=== PATIENT | male | born 1965 | race Caucasian/White ===

== ENCOUNTER 2016-11-24 18:22 | Emergency (ER) | payer OTHER, MEDICARE ==
--- NOTE | 2016-11-24 20:30 | EDDOCDS ---
Nurse's Notes [facility] Name: Joey Rogers Age: 51 yrs Sex: Male : 1965 Arrival Date: 11/24/2016 Time: 18:22 Bed TR7 Private MD: Jesus Dodge H. 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 has seen PMD and srm was given flonase. not helping. nausea dizzy. This patient has no additional risk factors. Adult Sepsis Screening: The patient does not have new or worsening altered mentation. Patient's respiratory rate is less than 22. Systolic blood pressure is greater than 100. Patient has a qSOFA score of 0- Negative Sepsis Screen. Suicide/Homicide risk assessment- the patient denies having any suicidal and/or homicidal ideations and does not present with any other emotional, behavioral or mental health complaints. Status: Patient is not a service girl or dependent. Transition of care: patient was not received from another setting of care. 18:37 Acuity: JORGE Level 4 srm 18:37 Method Of Arrival: Walkin/Carried/Asstd srm Triage Assessment: 18:41 Headache History: This patient does not have a history of previous headaches. General: srm Appears in no apparent distress, Behavior is appropriate for age, cooperative. Pain: Pain currently is 6 out of 10 on a pain scale. Pain began 1 week Also complains of nausea. Neurological: Level of Consciousness is awake, alert, Oriented to person, place, time. 18:42 Pt Declines HIV testing. srm Historical: - Allergies: Morphine; - Home Meds: 1. Flonase 50 mcg/actuation Nasal spsn 1 spray 2 times per day 2. Toprol XL 25 mg Oral Tb24 once daily 3. atorvastatin 10 mg oral tab 1 tab once daily - PMHx: Hypertension; Hypercholesterolemia; av heart block second degree; - PSHx: Pacemaker Insertion; knee surgery; Vasectomy; Hernia repair; - Social history: Smoking status: Patient states former smoker of tobacco. No barriers to communication noted, The patient speaks fluent Czech, Speaks appropriately for age. - Family history: Not pertinent. - : The pt / caregiver states he / she is not on anticoagulants. Home medication list is obtained from the patient. - Exposure Risk Screening:: None identified. Screenin:26 Screening information is obtained from the patient. Fall risk: No risks identified. [facility] Assistance ADL's: requires no assistance with activities of daily living. Abuse/DV Screen: The patient / caregiver reports he/she is: not in a situation that causes fear, pain or injury. Nutritional screening: No deficits noted. Advance Directives: There is no active DNR order. home support is adequate. Assessment: 20:26 General: Appears in no apparent distress, comfortable, Behavior is appropriate for age, h cooperative. Pain: Location: head Pain currently is 6 out of 10 on a pain scale. Pain: Also complains of no other associated symptoms. Neurological: Level of Consciousness is awake, alert, Oriented to person, place, time. Respiratory: Airway is patent Respiratory effort is even, unlabored, Respiratory pattern is regular, symmetrical. Derm: Skin is pink, warm & dry. Vital Signs: 18:23 BP 120 / 60; Pulse 76; Resp 18; Temp 97.0(O); Pulse Ox 99% on R/A; Weight 79.38 kg (R); ct3 Height 5 ft. 6 in. (167.64 cm) (R); Pain 6/10; 20:20 BP 145 / 89; Pulse 61; Resp 18; Temp 98.3; Pulse Ox 96% on R/A; Pain 5/10; ar3 18:23 Body Mass Index 28.25 (79.38 kg, 167.64 cm) ct3 Vitals: 18:23 Log In Time: November 24, 2016 at 18:20. ct3 ED Course: 18:23 Patient visited by Laura Dobbs PCA. ct3 18:23 Jesus Dodge is Private Physician. ct3 18:23 Patient moved to Waiting ct3 18:24 Patient moved to Pre RCE ct3 18:38 Triage Initiated srm 19:46 Mamie Smith,BARBIE is Primary Nurse. ar3 19:46 Patient moved to Triage 3 ar3 19:56 Javy Carson PA is PHCP. btw 19:56 Patricio Angela DO is Attending Physician. btw 19:57 Patient visited by Javy Carson PA. btw 20:12 Jesus Dodge is Referral Physician. btw 20:20 Patient visited by Sanjana Serrano PCA. ar3 20:22 Patient moved to [facility] 20:26 The patient / caregiver is instructed regarding the plan of care and ED course. [facility] 20:26 No IV's were initiated during this patient's visit. No procedures done that require [facility] assistance. 20:29 [facility] Payment Agreement was scanned into [email or web address] and attached to record. [facility] Order Results: There are currently no results for this order. Outcome: 20:12 Discharge ordered by Provider. bt 20:26 Discharge Assessment: Patient awake, alert and oriented x 3. No cognitive and/or [facility] functional deficits noted. Patient verbalized understanding of disposition instructions. patient administered narcotics - no. The following High Risk Discharge criteria are identified: None. Discharged to home ambulatory, with significant other. Condition: good Condition: stable Condition: improved. Discharge instructions given to patient, Instructed on discharge instructions, follow up and referral plans. medication usage, Demonstrated understanding of instructions, medications, Pt was receptive of discharge instructions/ teaching. Prescriptions given X 1. No special radiology studies were completed. Property :Personal belongings accompany Pt. 20:30 Patient left the ED. [facility] Signatures: Vanessa Barry, RN RN [facility] Jamar Zacarias RN BARBIE Sanjana Serrano, JOB COACHING JOB COACHING ar3 Javy Carson PA PA [facility] Laura Dobbs, JOB COACHING JOB COACHING ct3 Mamie Smith RN RN [facility] Sue Avila MTDD
--- NOTE | 2016-11-24 20:30 | EDDOCDS ---
Physician Documentation [facility] Name: Joey Rogers Age: 51 yrs Sex: Male : 1965 Arrival Date: 11/24/2016 Time: 18:22 Bed TR7 Private MD: eJsus Dodge H. Disposition: 11/24/16 20:12 Discharged to Home/Self Care. Impression: Cluster headaches and other trigeminal autonomic cephalgias (TAC). - Condition is Stable. - Discharge Instructions: Cluster Headache, [id number]. - Prescriptions for Imitrex 5 mg/Actuation Nasal Aerosol, [place] - inhale 1 spray by INTRANASAL route one time x 1 dose; if headache returns, the dose may be repeated once after 2 hours, not to exceed a total daily dose of 8 sprays; 1 Inhaler. - Medication Reconciliation, Local Pharmacy Hours form. - Follow up: Jesus Dodge; When: 2 - 3 days; Reason: Further diagnostic work-up, Recheck today's complaints, Continuance of care. - Problem is an ongoing problem. - Symptoms are unchanged. Historical: - Allergies: Morphine; - Home Meds: 1. Flonase 50 mcg/actuation Nasal spsn 1 spray 2 times per day 2. Toprol XL 25 mg Oral Tb24 once daily 3. atorvastatin 10 mg oral tab 1 tab once daily - PMHx: Hypertension; Hypercholesterolemia; av heart block second degree; - PSHx: Pacemaker Insertion; knee surgery; Vasectomy; Hernia repair; - Social history: Smoking status: Patient states former smoker of tobacco. No barriers to communication noted, The patient speaks fluent Grenadian, Speaks appropriately for age. - Family history: Not pertinent. - : The pt / caregiver states he / she is not on anticoagulants. Home medication list is obtained from the patient. - Exposure Risk Screening:: None identified. Vital Signs: 11/24 18:23 BP 120 / 60; Pulse 76; Resp 18; Temp 97.0(O); Pulse Ox 99% on R/A; Weight 79.38 kg / ct3 175 lbs (R); Height 5 ft. 6 in. (167.64 cm) (R); Pain 6/10; 20:20 BP 145 / 89; Pulse 61; Resp 18; Temp 98.3; Pulse Ox 96% on R/A; Pain 5/10; ar3 18:23 Body Mass Index 28.25 (79.38 kg, 167.64 cm) ct3 MDM: 20:29 Financial registration complete. tj 20:29 [facility] Payment Agreement was scanned into [employer] and attached to record. tj Signatures: Vanessa Barry, RN Javy Suh PA PA btw Hafner, Jane, RN RN cjh Beck, Gabriela gjb The chart was reviewed and I authenticate all verbal orders and agree with the evaluation and treatment provided.Attachments: 20:29 [facility] Payment Agreement gjb MTDD
--- NOTE | 2016-11-26 21:31 | EDDOCDS ---
Physician Documentation [facility] Name: Joey Rogers Age: 51 yrs Sex: Male : 1965 Arrival Date: 11/24/2016 Time: 18:22 Bed TR7 Private MD: Jesus Dodge H. Disposition: 11/24/16 20:12 Discharged to Home/Self Care. Impression: Cluster headaches and other trigeminal autonomic cephalgias (TAC). - Condition is Stable. - Discharge Instructions: Cluster Headache, [id number]. - Prescriptions for Imitrex 5 mg/Actuation Nasal Aerosol, [place] - inhale 1 spray by INTRANASAL route one time x 1 dose; if headache returns, the dose may be repeated once after 2 hours, not to exceed a total daily dose of 8 sprays; 1 Inhaler. - Medication Reconciliation, Local Pharmacy Hours form. - Follow up: Jesus Dodge; When: 2 - 3 days; Reason: Further diagnostic work-up, Recheck today's complaints, Continuance of care. - Problem is an ongoing problem. - Symptoms are unchanged. Historical: - Allergies: Morphine; - Home Meds: 1. Flonase 50 mcg/actuation Nasal spsn 1 spray 2 times per day 2. Toprol XL 25 mg Oral Tb24 once daily 3. atorvastatin 10 mg oral tab 1 tab once daily - PMHx: Hypertension; Hypercholesterolemia; av heart block second degree; - PSHx: Pacemaker Insertion; knee surgery; Vasectomy; Hernia repair; - Social history: Smoking status: Patient states former smoker of tobacco. No barriers to communication noted, The patient speaks fluent Tajik, Speaks appropriately for age. - Family history: Not pertinent. - : The pt / caregiver states he / she is not on anticoagulants. Home medication list is obtained from the patient. - Exposure Risk Screening:: None identified. Vital Signs: 11/24 18:23 BP 120 / 60; Pulse 76; Resp 18; Temp 97.0(O); Pulse Ox 99% on R/A; Weight 79.38 kg / ct3 175 lbs (R); Height 5 ft. 6 in. (167.64 cm) (R); Pain 6/10; 20:20 BP 145 / 89; Pulse 61; Resp 18; Temp 98.3; Pulse Ox 96% on R/A; Pain 5/10; ar3 18:23 Body Mass Index 28.25 (79.38 kg, 167.64 cm) ct3 MDM: 20:29 Financial registration complete. [facility] 20:29 [facility] Payment Agreement was scanned into [employer] and attached to record. [facility] 11/25 09:57 T-Sheet-- Draft Copy was scanned into [employer] and attached to record. klr Signatures: Vanessa Barry RN RN srm Wolfenden, Brandon, PA PA btw Hafner, Jane, RN RN cjh Beck, Gabriela gjb Redder, Kathie klr The chart was reviewed and I authenticate all verbal orders and agree with the evaluation and treatment provided.Attachments: 11/24 20:29 [facility] Payment Agreement [facility] 11/25 09:57 T-Sheet-- Draft Copy klr Chart Complete MTDD
--- NOTE | 2016-11-26 21:31 | EDDOCDS ---
Nurse's Notes [facility] Name: Joey Rogers Age: 51 yrs Sex: Male : 1965 Arrival Date: 11/24/2016 Time: 18:22 Bed TR7 Private MD: Jesus Dodge H. 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 has seen PMD and srm was given flonase. not helping. nausea dizzy. This patient has no additional risk factors. Adult Sepsis Screening: The patient does not have new or worsening altered mentation. Patient's respiratory rate is less than 22. Systolic blood pressure is greater than 100. Patient has a qSOFA score of 0- Negative Sepsis Screen. Suicide/Homicide risk assessment- the patient denies having any suicidal and/or homicidal ideations and does not present with any other emotional, behavioral or mental health complaints. Status: Patient is not a protective services social worker or dependent. Transition of care: patient was not received from another setting of care. 18:37 Acuity: JORGE Level 4 srm 18:37 Method Of Arrival: Walkin/Carried/Asstd srm Triage Assessment: 18:41 Headache History: This patient does not have a history of previous headaches. General: srm Appears in no apparent distress, Behavior is appropriate for age, cooperative. Pain: Pain currently is 6 out of 10 on a pain scale. Pain began 1 week Also complains of nausea. Neurological: Level of Consciousness is awake, alert, Oriented to person, place, time. 18:42 Pt Declines HIV testing. srm Historical: - Allergies: Morphine; - Home Meds: 1. Flonase 50 mcg/actuation Nasal spsn 1 spray 2 times per day 2. Toprol XL 25 mg Oral Tb24 once daily 3. atorvastatin 10 mg oral tab 1 tab once daily - PMHx: Hypertension; Hypercholesterolemia; av heart block second degree; - PSHx: Pacemaker Insertion; knee surgery; Vasectomy; Hernia repair; - Social history: Smoking status: Patient states former smoker of tobacco. No barriers to communication noted, The patient speaks fluent Ghanaian, Speaks appropriately for age. - Family history: Not pertinent. - : The pt / caregiver states he / she is not on anticoagulants. Home medication list is obtained from the patient. - Exposure Risk Screening:: None identified. Screenin:26 Screening information is obtained from the patient. Fall risk: No risks identified. [facility] Assistance ADL's: requires no assistance with activities of daily living. Abuse/DV Screen: The patient / caregiver reports he/she is: not in a situation that causes fear, pain or injury. Nutritional screening: No deficits noted. Advance Directives: There is no active DNR order. home support is adequate. Assessment: 20:26 General: Appears in no apparent distress, comfortable, Behavior is appropriate for age, h cooperative. Pain: Location: head Pain currently is 6 out of 10 on a pain scale. Pain: Also complains of no other associated symptoms. Neurological: Level of Consciousness is awake, alert, Oriented to person, place, time. Respiratory: Airway is patent Respiratory effort is even, unlabored, Respiratory pattern is regular, symmetrical. Derm: Skin is pink, warm & dry. Vital Signs: 18:23 BP 120 / 60; Pulse 76; Resp 18; Temp 97.0(O); Pulse Ox 99% on R/A; Weight 79.38 kg (R); ct3 Height 5 ft. 6 in. (167.64 cm) (R); Pain 6/10; 20:20 BP 145 / 89; Pulse 61; Resp 18; Temp 98.3; Pulse Ox 96% on R/A; Pain 5/10; ar3 18:23 Body Mass Index 28.25 (79.38 kg, 167.64 cm) ct3 Vitals: 18:23 Log In Time: November 24, 2016 at 18:20. ct3 ED Course: 18:23 Patient visited by Laura Dobbs PCA. ct3 18:23 Jesus Dodge is Private Physician. ct3 18:23 Patient moved to Waiting ct3 18:24 Patient moved to Pre RCE ct3 18:38 Triage Initiated srm 19:46 Mamie Smith,BARBIE is Primary Nurse. ar3 19:46 Patient moved to Triage 3 ar3 19:56 Javy Carson PA is PHCP. btw 19:56 Patricio Angela DO is Attending Physician. btw 19:57 Patient visited by Javy Carson PA. btw 20:12 Jesus Dodge is Referral Physician. btw 20:20 Patient visited by Sanjana Serrano PCA. ar3 20:22 Patient moved to [facility] 20:26 The patient / caregiver is instructed regarding the plan of care and ED course. [facility] 20:26 No IV's were initiated during this patient's visit. No procedures done that require [facility] assistance. 20:29 [facility] Payment Agreement was scanned into [employer] and attached to record. [facility] 11/25 09:57 T-Sheet-- Draft Copy was scanned into [employer] and attached to record. klr Order Results: There are currently no results for this order. Outcome: 11/24 20:12 Discharge ordered by Provider. btw 20:26 Discharge Assessment: Patient awake, alert and oriented x 3. No cognitive and/or [facility] functional deficits noted. Patient verbalized understanding of disposition instructions. patient administered narcotics - no. The following High Risk Discharge criteria are identified: None. Discharged to home ambulatory, with significant other. Condition: good Condition: stable Condition: improved. Discharge instructions given to patient, Instructed on discharge instructions, follow up and referral plans. medication usage, Demonstrated understanding of instructions, medications, Pt was receptive of discharge instructions/ teaching. Prescriptions given X 1. No special radiology studies were completed. Property :Personal belongings accompany Pt. 20:30 Patient left the ED. [facility] Signatures: Vanessa Barry, RN Jamar Todd RN RN Sanjana Serrano, COUNTER STACKER COUNTER STACKER ar3 Javy Carson PA PA [facility] Laura Dobbs, COUNTER STACKER COUNTER STACKER ct3 Mamie Smith RN RN cj Sue Avila [facility] Clotilde Mcdaniel Chart Complete MTDD
--- NOTE | 2016-11-26 21:31 | EDDOCDS ---
Physician Documentation [facility] Name: Joey Rogers Age: 51 yrs Sex: Male : 1965 Arrival Date: 11/24/2016 Time: 18:22 Bed TR7 Private MD: Jesus Dodge H. Disposition: 11/24/16 20:12 Discharged to Home/Self Care. Impression: Cluster headaches and other trigeminal autonomic cephalgias (TAC). - Condition is Stable. - Discharge Instructions: Cluster Headache, [id number]. - Prescriptions for Imitrex 5 mg/Actuation Nasal Aerosol, [place] - inhale 1 spray by INTRANASAL route one time x 1 dose; if headache returns, the dose may be repeated once after 2 hours, not to exceed a total daily dose of 8 sprays; 1 Inhaler. - Medication Reconciliation, Local Pharmacy Hours form. - Follow up: Jesus Dodge; When: 2 - 3 days; Reason: Further diagnostic work-up, Recheck today's complaints, Continuance of care. - Problem is an ongoing problem. - Symptoms are unchanged. Historical: - Allergies: Morphine; - Home Meds: 1. Flonase 50 mcg/actuation Nasal spsn 1 spray 2 times per day 2. Toprol XL 25 mg Oral Tb24 once daily 3. atorvastatin 10 mg oral tab 1 tab once daily - PMHx: Hypertension; Hypercholesterolemia; av heart block second degree; - PSHx: Pacemaker Insertion; knee surgery; Vasectomy; Hernia repair; - Social history: Smoking status: Patient states former smoker of tobacco. No barriers to communication noted, The patient speaks fluent Finnish, Speaks appropriately for age. - Family history: Not pertinent. - : The pt / caregiver states he / she is not on anticoagulants. Home medication list is obtained from the patient. - Exposure Risk Screening:: None identified. Vital Signs: 11/24 18:23 BP 120 / 60; Pulse 76; Resp 18; Temp 97.0(O); Pulse Ox 99% on R/A; Weight 79.38 kg / ct3 175 lbs (R); Height 5 ft. 6 in. (167.64 cm) (R); Pain 6/10; 20:20 BP 145 / 89; Pulse 61; Resp 18; Temp 98.3; Pulse Ox 96% on R/A; Pain 5/10; ar3 18:23 Body Mass Index 28.25 (79.38 kg, 167.64 cm) ct3 MDM: 20:29 Financial registration complete. [facility] 20:29 [facility] Payment Agreement was scanned into [employer] and attached to record. [facility] 11/25 09:57 T-Sheet-- Draft Copy was scanned into [employer] and attached to record. klr Signatures: Vanessa Barry RN RN srm Wolfenden, Brandon, PA PA btw Hafner, Jane, RN RN cjh Beck, Gabriela gjb Redder, Kathie klr The chart was reviewed and I authenticate all verbal orders and agree with the evaluation and treatment provided.Attachments: 11/24 20:29 [facility] Payment Agreement [facility] 11/25 09:57 T-Sheet-- Draft Copy klr Chart Complete MTDD
== END 2016-11-24 20:30 | disposition home or self-care (01) ==
LOC: M ED 18:22
DX: G44.019 Episodic cluster headache, not intractable (principal); I10 Essential (primary) hypertension; E78.00 Pure hypercholesterolemia, unspecified; I44.1 Atrioventricular block, second degree; F17.210 Nicotine dependence, cigarettes, uncomplicated; Z79.899 Other long term (current) drug therapy; Z88.5 Allergy status to narcotic agent

== ENCOUNTER → 2018-07-13 | Outpatient (CLI) | payer OTHER, MEDICARE ==
[~2018-07-13] MED LIST: ISOVUE-370 76% 100ML VIAL (Q9967) As Ordered
== END ==
LOC: M RAD 13:44
DX: I67.1 Cerebral aneurysm, nonruptured (principal); R42 Dizziness and giddiness

== ENCOUNTER → 2021-02-21 | Outpatient (CLI) | payer OTHER, MEDICARE ==
--- NOTE | 2021-02-23 08:06 | REP ---
INDICATION: NEOPLASM OF LEFT TESTI COMPARISON: None. TECHNIQUE: Oliveira scale and color Doppler evaluation using linear and curved array transducer with color Doppler evaluation. FINDINGS: The bilateral testicles are normal and symmetric in appearance, parenchymal echotexture, vascularity without evidence for intra testicular mass lesion. Small bilateral complex hydroceles suggest changes related to prior infectious process. With regards to the patient's left palpable mass, there is a heterogeneous enlarged appearance to the region of the left epididymal tail which is nonspecific. Right testicle measures 4.2 x 2.1 x 3.6 cm. Left testicle measures 4.2 x 2.2 x 3.5 cm. IMPRESSION: 1. Normal appearance to the bilateral testicles without intra testicular mass lesion. 2. Asymmetric enlarged heterogeneous appearance along the inferior region of the left epididymis corresponding to the patient's palpable mass. The finding is nonspecific and may represent thrombosed calcified varicoceles and less likely true mass lesion. No prior examinations are available for comparison. Consider re-evaluation in 4-6 weeks. <Electronically signed by Denis Da Silva > 02/23/21 [id number]
== END ==
LOC: M RAD 11:32
PROVIDERS: ATTEND Internal Medicine
DX: N50.9 Disorder of male genital organs, unspecified (principal)

== ENCOUNTER → 2021-09-30 | Outpatient (CLI) | payer OTHER, MEDICARE ==
[~2021-09-30] MED LIST changes: +ISOVUE-300 61% 50ML VIAL As Ordered ONE; -ISOVUE-370 76% 100ML VIAL (Q9967) As Ordered; +LIDOCAINE 1% MDV 20ML VIAL As Ordered ONE
--- NOTE | 2021-09-30 15:16 | REP ---
INDICATION: LT KNEE STRAIN W/ SWELLING ? CYST. COMPARISON: None. TECHNIQUE: 2 x [address] scanning through the left knee after the intra-articular injection of radiographic contrast as a knee CT arthrogram. The knee joint junction was performed by Mi PATTERSON. FINDINGS: No abnormal contrast accumulation is seen in the menisci. Although not directly visualized, the outline of the cruciate ligaments is consistent with intact ligaments. This can only be suggested. There is linear contrast accumulation in the patellar articular cartilage and slightly within the articular cartilage of the trochlear groove. There is no evidence of an acute fracture, dislocation, or subluxation. There is a collection of contrast seen herniating between the tendons of the medial head of the gastrocnemius muscle and semimembranosus muscle measuring approximately 7.2 x 3.9 x 2.9 cm. IMPRESSION: 1. There is no evidence of a meniscal tear. 2. 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 3. Evidence to suggest intact collateral ligaments. 4. Rodriguez's cyst as described above. <Electronically signed by Saw Cruz > 09/30/21 [id number]
--- NOTE | 2021-09-30 17:39 | REP ---
INDICATION: LEFT KNEE PAIN. COMPARISON: None TECHNIQUE: The procedure was performed by LEONARDO Henderson, under the direct supervision of Dr. Oliveira. The benefits and risks of the procedure were explained to the patient, and an informed consent was obtained. Directly prior to the start of the procedure, a formal time-out was completed in the procedure room. The left knee joint space was localized using fluoroscopic guidance. The skin was prepped and draped in a sterile fashion. Approximately 5 mL of 1% Lidocaine 10 mg/ml was used as a local anesthetic. Using fluoroscopic guidance, a #22 gauge spinal needle was inserted and advanced into the left knee joint space. Approximately 15 mL of Isovue 300 was injected. the needle was removed and hemostasis was achieved. FINDINGS: The patient tolerated the procedure well and there were no immediate complications. IMPRESSION: 1. Technically successful left knee arthrogram. CT imaging follow. 0.1 minutes of fluoroscopy time was utilized for this procedure. Some fluoroscopic images are performed with last image hold technology. These images require no additional radiation. <Electronically signed by Mi Montoya > 09/30/21 [id number] <Electronically signed by Jackson Oliveira > 09/30/21 [id number]
== END ==
LOC: M RADPRO 08:24
PROVIDERS: ATTEND Physician Assistant
DX: S76.312A Strain of muscle, fascia and tendon of the posterior muscle group at thigh level, left thigh, initial encounter (principal); M94.262 Chondromalacia, left knee; M71.21 Synovial cyst of popliteal space [Baker], right knee; Y92.89 Other specified places as the place of occurrence of the external cause; Y93.89 Activity, other specified; Y99.8 Other external cause status
CPT/HCPCS: 27369; 73701; 77002; Q9967

== ENCOUNTER → 2023-03-04 | Outpatient (CLI) | payer MEDICARE, OTHER ==
[~2023-03-04] MED LIST changes: +ASPI81TA26 PO; +EZET10TA21 PO; -ISOVUE-300 61% 50ML VIAL As Ordered ONE; -LIDOCAINE 1% MDV 20ML VIAL As Ordered ONE; +METO1TAB32 PO; +VITMTA PO
== END ==
LOC: M RAD 08:20
PROVIDERS: ATTEND Physician Assistant Medical
DX: R13.10 Dysphagia, unspecified (principal); R12 Heartburn; K44.9 Diaphragmatic hernia without obstruction or gangrene

== ENCOUNTER 2023-03-18 08:17 | Day surgery (SDC) | payer OTHER, MEDICARE ==
[~2023-03-18] VITALS: Ht 167.6 cm; Wt 74.4 kg
[~2023-03-18 08:17] MED LIST changes: +NS 1,000 ML IV ONE
[2023-03-18] MEDS ORDERED: propofoL 200 MG/20 ML VIAL As Ordered ONE ×2 (09:38→09:43)
[2023-03-18 10:48] VITALS: BP 153/77; TEMP 97.5; O2SAT 98
== END 2023-03-18 10:40 | disposition home or self-care (01) ==
LOC: M OPP 08:17
PROVIDERS: ATTEND Internal Medicine Gastroenterology
DX: K44.9 Diaphragmatic hernia without obstruction or gangrene (principal); K22.2 Esophageal obstruction; K22.70 Barrett's esophagus without dysplasia; R13.10 Dysphagia, unspecified; R12 Heartburn

== ENCOUNTER → 2023-05-15 | Outpatient (CLI) | payer OTHER, MEDICARE ==
[~2023-05-15] MED LIST changes: -NS 1,000 ML IV ONE
[2023-05-15 12:07] LABS: BASO % 0.4 % (0.0-1.0); EOS # 0.1 10^3/uL (0.0-0.5); EOS % 1.6 % (0.0-3.0); HEMATOCRIT 40.4 % (42.0-52.0); HEMOGLOBIN 13.3 g/dl (13.5-17.5); LYMPH # 1.7 10^3/uL (1.5-5.0); LYMPH % 32.5 % (24.0-44.0); MEAN CORPUSCULAR HEMOGLOBIN 30.6 pg (27.0-33.0); MEAN CORPUSCULAR HGB CONC 32.9 g/dl (32.0-36.5); MEAN CORPUSCULAR VOLUME 93.1 fl (80.0-96.0); MONO # 0.5 10^3/uL (0.0-0.8); MONO % 10.5 % (2.0-8.0); NEUTROPHILS # 2.8 10^3/uL (1.5-8.5); NEUTROPHILS % 54.8 % (36.0-66.0); PLATELET COUNT, AUTOMATED 241 10^3/uL (150-450); RED BLOOD COUNT 4.34 10^6/uL (4.30-6.10); WHITE BLOOD COUNT 5.1 10^3/uL (4.0-10.0)
[2023-05-15 12:36] LABS: BLOOD UREA NITROGEN 12 MG/DL (9-23); CALCIUM LEVEL 9.3 MG/DL (8.5-10.1); CARBON DIOXIDE LEVEL 27 MMOL/L (20-31); CHLORIDE LEVEL 103 MMOL/L (98-107); CHOLESTEROL LEVEL 217 MG/DL (<200); CHOLESTEROL RISK RATIO 2.71 (<5); CREATININE FOR GFR 0.78 MG/DL (0.70-1.30); GLOMERULAR FILTRATION RATE > 60.0 (>56); GLUCOSE, FASTING 87 MG/DL (60-100); LDL CHOLESTEROL 117.4 MG/DL (<100); POTASSIUM SERUM 4.2 MMOL/L (3.5-5.1); SODIUM LEVEL 139 MMOL/L (136-145); TRIGLYCERIDES LEVEL 98 MG/DL (<150)
== END ==
LOC: M LAB 10:54
PROVIDERS: ATTEND Physician Assistant
DX: R07.89 Other chest pain (principal); E78.2 Mixed hyperlipidemia